=== PATIENT | female | born 1950 | race Caucasian/White ===

== ENCOUNTER → 2023-11-03 | Outpatient (CLI) | payer MEDICARE ==
--- NOTE | 2023-11-05 10:46 | CT ---
EXAMINATION TYPE: CT cervical spine wo con DATE OF EXAM: 11/03/2023 COMPARISON: None HISTORY: chronic neck pain CT DLP: 279 mGycm CONTRAST: None CT of the cervical spine is performed in the axial plane at 2 mm thick sections. Reconstructed image s in the coronal, and sagittal plane are reviewed on the computer. No acute fractures are evident. Anterior cervical fusion is present C4-C7. Prevertebral space is norm al. C7-T1 disc space narrowing is evident. There is left foraminal stenosis due to uncovertebral join t hypertrophy see 34. Vertebral body alignment is normal. Vertebral body heights are preserved. No spinal canal stenosis is evident IMPRESSION: 1. Postsurgical and chronic changes. 2. Some foraminal stenosis C3-4 on the left is present.
--- NOTE | 2023-11-05 14:43 | CT ---
EXAMINATION TYPE: CT lumbar spine wo con DATE OF EXAM: 11/03/2023 COMPARISON: None HISTORY: chronic lower back pain CT DLP: 432.9 mGycm CONTRAST: CT scan of the lumbar is performed without and with IV Contrast. TECHNIQUE: CT of the lumbar spine is performed on a spiral scan at 3 mm thick sections. Reconstructed images are performed in the coronal and sagittal planes. FINDINGS: Pedicle screws L4-L5 present. Stimulator leads are evident entering the lumbar spine extend ing superiorly. There is a disc spacer at L5-S1. Some scoliosis is within the lumbar spine. No focal disc herniations are evident. No spinal canal stenosis is evident. There is limitation on ev aluation due to beam hardening artifact within the lower lumbar spine. IMPRESSION: 1. Post surgical changes L5-S1 with pedicle screws. Stimulator leads entering the lumbar spine. 2. No spinal canal stenosis evident.
== END | disposition home or self-care (01) ==
LOC: RADCTMAIN 11:23
PROVIDERS: ATTEND Psychiatry & Neurology Neurology
DX: M99.71 Connective tissue and disc stenosis of intervertebral foramina of cervical region (principal); M47.812 Spondylosis without myelopathy or radiculopathy, cervical region; M47.817 Spondylosis without myelopathy or radiculopathy, lumbosacral region; R51.9 Headache, unspecified; R42 Dizziness and giddiness
CPT/HCPCS: 36415; 72125; 72131

== ENCOUNTER → 2023-11-03 | Outpatient (CLI) | payer MEDICARE ==
[2023-11-03 10:42] LABS: African American GFR (CKD) 25 (>60 ml/min/1.73 sqM); Blood Urea Nitrogen 38 mg/dL (7-17); Non-African American GFR(CKD) 22 (>60 ml/min/1.73 sqM)
--- NOTE | 2023-11-05 10:43 | CT ---
EXAMINATION TYPE: CT brain wo con DATE OF EXAM: 11/03/2023 COMPARISON: None INDICATION: headaches DLP: 995.5 mGycm, Automated exposure control for dose reduction was used. CONTRAST: None CT of the brain is performed utilizing 3 mm thick sections through the posterior fossa and 3 mm thick sections through the remaining calvarium. Study is performed within 24 hours of arrival to the [facility]. No abnormal hyperdensity is present to suggest an acute intracranial hemorrhage. No mass lesion is evident. No acute infarcts are evident. Very minimal periventricular white matter hypodensity may be present, likely on the basis of chronic white matter ischemic change. Ventricles and sulci are appropriate for the patient age. Paranasal sinuses and mastoid air cells within the [id number] are clear. IMPRESSION: 1. Suggestion of minimal periventricular white matter ischemic-type changes. MRI can be performed a s clinically indicated.
== END | disposition home or self-care (01) ==
LOC: RADCTMAIN 09:50
PROVIDERS: ATTEND Psychiatry & Neurology Neurology
DX: R51.9 Headache, unspecified (principal); M54.2 Cervicalgia; M54.50 Low back pain, unspecified; R42 Dizziness and giddiness
CPT/HCPCS: 70450; 82565; 84520

== ENCOUNTER → 2023-12-15 | Outpatient (CLI) | payer MEDICARE ==
--- NOTE | 2023-12-15 09:47 | US ---
EXAMINATION TYPE: US kidneys/renal and bladder DATE OF EXAM: 12/15/2023 COMPARISON: NONE CLINICAL INDICATION: Female, 73 years old with history of N18.31 CHRONIC KIDNEY DISEASE, STAGE 3A; CK D EXAM MEASUREMENTS: Right Kidney: 7.2x3.4x5.2 cm Left Kidney: 5.7x3.2x2.9 cm Right Kidney: complex cystic area measures 1.8x1.3x1.6cm Left Kidney: No hydronephrosis or masses seen Bladder: wnl Bilateral Jets seen: Yes There is no evidence for hydronephrosis at this point in time. No nephrolithiasis is seen. No carlo s are identified. The urinary bladder is anechoic. Bilateral ureteral jets are seen. exam limited by bowel gas IMPRESSION: Complex cyst upper pole right kidney. Consider CT correlation.
== END | disposition home or self-care (01) ==
LOC: RADUSWWP 09:05
PROVIDERS: ATTEND Family Medicine
DX: N28.1 Cyst of kidney, acquired (principal); N18.31 Chronic kidney disease, stage 3a
CPT/HCPCS: 76770

== ENCOUNTER → 2024-01-06 | Outpatient (CLI) | payer MEDICARE ==
[2024-01-06 15:20] LABS: Basophils # (A) 0.09 X 10*3/uL (0.00-0.10); Basophils % (A) 0.8 %; Eosinophils # (A) 0.31 X 10*3/uL (0.04-0.35); Eosinophils % (A) 2.9 %; HCT 32.1 % (37.2-46.3); Lymphocytes % (A) 21.6 %; MCH 28.5 pg (27.0-32.0); MCHC 31.2 g/dL (32.0-37.0); MCV 91.5 FL (80.0-97.0); Mean Platelet Volume 9.6 FL (9.5-12.2); Monocytes # (A) 0.84 X 10*3/uL (0.20-1.00); Monocytes % (A) 7.9 %; NRBC Per 100 WBC 0 X 10*3/uL (0.00-0.01); Neutrophils # (A) 6.94 X 10*3/uL (1.80-7.70); Neutrophils % (A) 65.4 %; Platelet Count 294 X 10*3/uL (140-440); RBC 3.51 X 10*6/uL (4.10-5.20); RDW 13.7 % (11.5-14.5); WBC 10.63 X 10*3/uL (4.50-10.00)
[2024-01-06 16:27] LABS: ALT 7 U/L (8-44); AST 17 U/L (13-35); Albumin 4.2 g/dL (3.8-4.9); Albumin/Globulin Ratio 1.56 Ratio (1.60-3.17); Alkaline Phosphatase 80 U/L (41-126); BUN/Creat Ratio 20.15 Ratio (12.00-20.00); Blood Urea Nitrogen 40.3 mg/dL (9.0-27.0); Calcium 9.5 mg/dL (8.7-10.3); Chloride 100 mmol/L (96-109); Globulin 2.7 g/dL (1.6-3.3); Glucose 106 mg/dL (70-110); Potassium 5.4 mmol/L (3.5-5.5); Sodium 137 mmol/L (135-145); Total Bilirubin <0.2 mg/dL (0.3-1.2); Total Protein 6.9 g/dL (6.2-8.2)
[2024-01-06 19:49] LABS: Phosphorus 4.7 mg/dL (2.4-5.1)
[2024-01-06 23:51] LABS: Total Volume 24 Hour,Urine 2200 mL
== END | disposition home or self-care (01) ==
LOC: LABWHC1 10:20
PROVIDERS: ATTEND Family Medicine
DX: N18.31 Chronic kidney disease, stage 3a (principal)
CPT/HCPCS: 36415; 80053; 81050; 84100; 84156; 85025

== ENCOUNTER → 2024-07-11 | Outpatient (CLI) | payer MEDICARE ==
--- NOTE | 2024-07-11 15:02 | CT ---
EXAMINATION TYPE: CT thoracic spine wo con CT DLP: 1239 mGycm, Automated exposure control for dose reduction was used. DATE OF EXAM: 07/11/2024 11:06 AM COMPARISON: CT cervical and lumbar spine 11/03/2023, MR C-spine/T-spine 01/14/2022. CLINICAL INDICATION:Female, 73 years old with history of M51.34 DDD BACK M54.6 BACK PAIN; PHH, DDD, b ack pain TECHNIQUE: Axial images of the thoracic spine were obtained without contrast. Coronal and sagittal re formats were performed. FINDINGS: Postsurgical changes from anterior cervical fusion involving C4-C7. Hardware appears intact . Levocurvature of the lower thoracic and lumbar spine. Mild retrolisthesis of T12 on L1. The thoraci c vertebral bodies have preserved heights. Schmorl's node involving the superior endplate of the T5 v ertebral body. T11-T12 right lateral disc bulge. No significant central canal stenosis. Remaining int ervertebral discs appear unremarkable. No significant neuroforaminal stenosis is identified. There is 3 stimulator leads identified within the spinal canal with one terminating at the T10-T11 di sc level. The other 2 terminating at the T6-T7 disc level. Bilateral breast prosthesis partially visualized. Few scattered colonic diverticula demonstrated. Atr ophy of the left kidney. Right renal cortical 1.5 cm cyst. Large paraesophageal hernia with the third of the stomach intrathoracic. Left hepatic lobe 1.3 cm cyst. Right anterior abdominal wall power pac k. IMPRESSION: 1. No significant spinal canal or neural foraminal stenosis is identified. 2. Post surgical changes from anterior cervical fusion C4-C7. 3. Mild retrolisthesis of T12 on L1. 4. Large paraesophageal hernia. [facility], , 07/11/2024 2:59 PM
== END | disposition home or self-care (01) ==
LOC: RADCTMAIN 09:36
PROVIDERS: ATTEND Psychiatry & Neurology Neurology
DX: M43.15 Spondylolisthesis, thoracolumbar region (principal); M51.34 Other intervertebral disc degeneration, thoracic region; K44.9 Diaphragmatic hernia without obstruction or gangrene; Z98.890 Other specified postprocedural states; Z98.1 Arthrodesis status
CPT/HCPCS: 72128